=== PATIENT | female | born 1990 | race American Indian/Alaskan Native ===

== ENCOUNTER 2021-12-12 21:06 | Emergency (ER) | payer OTHER ==
[~2021-12-12] VITALS: Ht 157.5 cm; Wt 59.0 kg
--- NOTE | 2021-12-12 21:21 | NUR ---
PT BIBS C/O "DROPPING BOTTLE ON TOP OF LEFT FOOT" PATIENT HAS A LACERATION PRESENT NON DRAINING. PATIENT ALERT AND ORIENTED X4. AMBULATORY WITH NON LABORED BREATHING.
[2021-12-12] MEDS ORDERED: LIDOCAINE 1%-EPI 1:100,000 20 ML VIAL ONE (21:33)
[2021-12-12] MEDS ORDERED: KETOROLAC TROMETHAMINE INJ 30 MG/ML VIAL ONE (22:14)
[2021-12-12] MEDS ORDERED: KETOROLAC TROMETHAMINE INJ 30 MG/ML VIAL IM ONE (22:30)
--- NOTE | 2021-12-12 22:38 | NUR ---
PA AT BEDSIDE
[2021-12-12] MEDS ORDERED: IBUP-1953 PO (22:42)
[2021-12-12] MEDS ORDERED: DOXY100T28 PO (22:42)
[2021-12-12] MEDS ORDERED: NEOM28.43 TP (22:44)
--- NOTE | 2021-12-12 22:57 | NUR ---
Patient discharged to home in stable condition. Rx and Written and verbal after care instructions given. Patient verbalizes understanding of instruction.
[2021-12-12 23:51] VITALS: BP 122/62
== END 2021-12-12 22:57 | disposition home or self-care (01) ==
LOC: ER 21:09
DX: S91.311A Laceration without foreign body, right foot, initial encounter (principal); J45.909 Unspecified asthma, uncomplicated; Z88.0 Allergy status to penicillin; W20.8XXA Other cause of strike by thrown, projected or falling object, initial encounter; Y93.89 Activity, other specified; Y92.89 Other specified places as the place of occurrence of the external cause; Y99.8 Other external cause status
CPT/HCPCS: 12001; 96372; 99283; A6403; J1885; J3490